=== PATIENT | male | born 1960 | race Caucasian/White ===

== ENCOUNTER → 2018-05-01 10:04 | Outpatient (CLI) | payer OTHER, SELFPAY ==
[2018-05-01 10:33] LABS: Add Manual Diff / Slide Review NO; Basophils Percent Auto 0.8 % (0-2); Eosinophils Percent Auto 3.9 % (2-4); Hematocrit 35.3 % (41-53); Hemoglobin 12.3 g/dL (13.5-17.5); Mean Corpuscular HGB Conc 34.8 % (30-36); Mean Corpuscular Hemoglobin 33.7 PG (26-34); Mean Corpuscular Volume 96.9 fL (80-100); Monocytes Percent Auto 8.6 % (3-14); Neutrophils Absolute Auto 4100 /uL (3000-5900); Neutrophils Percent Auto 61.7 % (50-75); Platelet Count 236 X10^3/uL (150-400); Red Blood Cell Count 3.64 X10^6/uL (4.5-5.9); Red Cell Distribution Width 15.1 % (11.6-14.8); White Blood Cell Count 6.6 X10^3/uL (4.5-11.0)
[2018-05-01 11:15] LABS: Alanine Aminotransferase 35 IU/L (21-72); Albumin 4.4 g/dL (3.5-5.0); Albumin Globulin Ratio 1.5 (1.0-2.8); Alkaline Phosphatase 65 U/L (38-126); Aspartate Aminotransferase 25 IU/L (17-59); BUN Creatinine Ratio 36.2 (6-22); Bilirubin Total 0.5 mg/dL (0.2-1.3); Blood Urea Nitrogen 47 mg/dL (9-20); Carbon Dioxide 22 mmol/L (22-32); Chloride 109 mmol/L (98-107); Cholesterol 162 mg/dL (140-199); Estimated Glomerular Filt Rate 56.9 mL/min (>60); Globulin 2.9 g/dL (1.7-4.1); Glucose 122 mg/dL (70-100); HDL Cholesterol 26 mg/dL (40-60); HEMOLYSIS < 15 (0-50); Hemoglobin A1C% w Est Avg Glu 5.8 % (4.0-6.0); LDL Cholesterol Calculated 110 mg/dL (<100); Potassium 5.1 mmol/L (3.4-5.1); Sodium 146 mmol/L (137-145); Total Protein 7.3 g/dL (6.3-8.2); Triglycerides 128 mg/dL (35-150)
[2018-05-04 14:05] LABS: Fecal Immunochemical Test DETECTED
== END ==
PROVIDERS: PCP Nurse Practitioner Family; Visit Provider Nurse Practitioner Family
DX: E11.40 Type 2 diabetes mellitus with diabetic neuropathy, unspecified (principal); E78.5 Hyperlipidemia, unspecified; I10 Essential (primary) hypertension
CPT/HCPCS: 36415; 80053; 80061; 82274; 83036; 85025

== ENCOUNTER → 2018-05-07 14:27 | Outpatient (CLI) | payer OTHER, SELFPAY ==
[2018-05-07 14:38] LABS: Bacteria Urine None Seen; RBC Urine None Seen (0-5/HPF); WBC Urine None Seen (0-5/HPF)
[2018-05-07 15:00] LABS: Appearance Urine UA CLEAR; Bilirubin Urine UA NEGATIVE (NEGATIVE); Color Urine UA YELLOW; Glucose Urine UA NEGATIVE (Normal); Ketones Urine UA TRACE (NEGATIVE); Leukocyte Esterase Urine UA NEGATIVE (NEGATIVE); Nitrite Urine UA Negative (Negative); Occult Blood Urine UA NEGATIVE (Negative); Protein Urine UA NEGATIVE (Negative); Specific Gravity Urine UA 1.015 (1.000-1.035); Urobilinogen Urine UA 0.2 E.U./dL (0.2)
[2018-05-07 15:38] LABS: Culture Indicated Urine Cult Not Indicated; Squamous Epithelial Cell Urine 0-1 /HPF; Urine Comments Microscopic Normal
[2018-05-07 17:00] LABS: BUN Creatinine Ratio 29.2 (6-22); Blood Urea Nitrogen 35 mg/dL (9-20); Calcium 10.1 mg/dL (8.4-10.2); Carbon Dioxide 26 mmol/L (22-32); Chloride 105 mmol/L (98-107); Estimated Glomerular Filt Rate > 60.0 mL/min (>60); Glucose 113 mg/dL (70-100); HEMOLYSIS < 15 (0-50); Sodium 141 mmol/L (137-145)
[2018-05-07 17:01] LABS: Creatinine Urine Random 92.6 mg/dL
[2018-05-07 17:18] LABS: Microalbumi Creatinin Ratio Ur 6.4 ug/mg CR (<30); Microalbumin Urine Random < 0.6 mg/dL (0-1.6); Potassium 5.5 mmol/L (3.4-5.1)
== END ==
PROVIDERS: Visit Provider Internal Medicine
DX: E11.40 Type 2 diabetes mellitus with diabetic neuropathy, unspecified (principal); E78.5 Hyperlipidemia, unspecified; I10 Essential (primary) hypertension; R79.89 Other specified abnormal findings of blood chemistry
CPT/HCPCS: 36415; 80048; 81001; 82043; 82570

== ENCOUNTER → 2018-11-19 15:47 | Outpatient (CLI) | payer OTHER, SELFPAY ==
[2018-11-19 16:25] LABS: Hematocrit 32.1 % (41-53); Hemoglobin 11.1 g/dL (13.5-17.5); Mean Corpuscular HGB Conc 34.6 % (30-36); Mean Corpuscular Volume 95.6 fL (80-100); Platelet Count 274 X10^3/uL (150-400); Red Blood Cell Count 3.36 X10^6/uL (4.5-5.9); Red Cell Distribution Width 14.1 % (11.6-14.8); White Blood Cell Count 5.6 X10^3/uL (4.5-11.0)
[2018-11-19 16:32] LABS: Hemoglobin A1C% w Est Avg Glu 5.5 % (4.0-6.0)
[2018-11-19 16:42] LABS: Alanine Aminotransferase 29 IU/L (21-72); Albumin 4.6 g/dL (3.5-5.0); Albumin Globulin Ratio 1.8 (1.0-2.8); Alkaline Phosphatase 82 U/L (38-126); Aspartate Aminotransferase 22 IU/L (17-59); BUN Creatinine Ratio 28.8 (6-22); Bilirubin Total 0.5 mg/dL (0.2-1.3); Blood Urea Nitrogen 49 mg/dL (9-20); Calcium 10.3 mg/dL (8.4-10.2); Carbon Dioxide 25 mmol/L (22-32); Chloride 100 mmol/L (98-107); Estimated Glomerular Filt Rate 41.8 mL/min (>60); Globulin 2.6 g/dL (1.7-4.1); Glucose 113 mg/dL (70-100); HEMOLYSIS < 15 (0-50); Potassium 5.3 mmol/L (3.4-5.1); Sodium 138 mmol/L (137-145); Total Protein 7.2 g/dL (6.3-8.2)
[2018-11-19 16:58] LABS: Vitamin D 25 Hydroxy (D3) 38.7 ng/mL (30.0-100.0)
[2018-11-19 17:14] LABS: Prostate Specific Antigen Scrn 0.769 ng/mL (0.1-4.0)
[2018-11-19 17:18] LABS: Ferritin 83.4 ng/mL (17.9-464)
[2018-11-19 17:48] LABS: Folate 10.8 ng/mL (2.76-20.0); Vitamin B12 641 pg/mL (239-931)
== END ==
PROVIDERS: PCP Student in an Organized Health Care Education/Training Program; Visit Provider Student in an Organized Health Care Education/Training Program
DX: E55.9 Vitamin D deficiency, unspecified (principal); D64.9 Anemia, unspecified; E11.40 Type 2 diabetes mellitus with diabetic neuropathy, unspecified; F10.20 Alcohol dependence, uncomplicated; I10 Essential (primary) hypertension; Z12.5 Encounter for screening for malignant neoplasm of prostate
CPT/HCPCS: 36415; 80053; 82306; 82607; 82728; 82746; 83036; 85027; G0103

== ENCOUNTER → 2020-03-27 15:16 | Outpatient (CLI) | payer OTHER, SELFPAY ==
[2020-03-27 15:40] LABS: Hematocrit 39.1 % (41-53); Hemoglobin 13.3 g/dL (13.5-17.5); Mean Corpuscular HGB Conc 33.9 % (30-36); Mean Corpuscular Hemoglobin 30.4 PG (26-34); Mean Corpuscular Volume 89.8 fL (80-100); Platelet Count 227 X10^3/uL (150-400); Red Blood Cell Count 4.36 X10^6/uL (4.5-5.9); Red Cell Distribution Width 15.1 % (11.6-14.8); White Blood Cell Count 7.4 X10^3/uL (4.5-11.0)
[2020-03-27 15:49] LABS: Creatinine Urine Random 73.7 mg/dL
[2020-03-27 16:11] LABS: Hemoglobin A1C% w Est Avg Glu 5.8 % (4.0-6.0)
[2020-03-27 16:26] LABS: Microalbumi Creatinin Ratio Ur 8.1 ug/mg CR (<30); Microalbumin Urine Random < 0.6 mg/dL (0-1.6)
[2020-03-27 17:18] LABS: Alanine Aminotransferase 15 IU/L (<50); Albumin 4.5 g/dL (3.5-5.0); Albumin Globulin Ratio 1.8 (1.0-2.8); Alkaline Phosphatase 72 U/L (38-126); Aspartate Aminotransferase 19 IU/L (17-59); BUN Creatinine Ratio 27.7 (6-22); Bilirubin Total 0.7 mg/dL (0.2-1.3); Bilirubin Unconjugated 0.5 mg/dL (0.0-1.1); Blood Urea Nitrogen 31 mg/dL (9-20); Calcium 9.7 mg/dL (8.4-10.2); Carbon Dioxide 24 mmol/L (22-32); Chloride 106 mmol/L (98-107); Estimated Glomerular Filt Rate > 60.0 mL/min (>60); Globulin 2.5 g/dL (1.7-4.1); Glucose 86 mg/dL (70-100); HEMOLYSIS < 15 (0-50); Potassium 5.1 mmol/L (3.4-5.1); Sodium 138 mmol/L (137-145)
== END ==
PROVIDERS: PCP Student in an Organized Health Care Education/Training Program; Referring Provider Student in an Organized Health Care Education/Training Program; Visit Provider Student in an Organized Health Care Education/Training Program
DX: E11.9 Type 2 diabetes mellitus without complications (principal); F10.21 Alcohol dependence, in remission; I10 Essential (primary) hypertension; N18.3 Chronic kidney disease, stage 3 (moderate)
CPT/HCPCS: 36415; 80048; 80076; 82043; 82570; 83036; 85027; G0103

== ENCOUNTER → 2021-03-16 12:05 | Outpatient (CLI) | payer OTHER, SELFPAY ==
[2021-03-16 13:13] LABS: Hemoglobin A1C% w Est Avg Glu 5.7 % (4.0-6.0)
[2021-03-16 13:17] LABS: BUN Creatinine Ratio 25.8 (6-22); Blood Urea Nitrogen 24 mg/dL (9-20); Calcium 9.9 mg/dL (8.4-10.2); Carbon Dioxide 20 mmol/L (22-32); Chloride 109 mmol/L (98-107); Estimated Glomerular Filt Rate > 60.0 mL/min (>60); Glucose 106 mg/dL (70-100); HEMOLYSIS 22 (0-50); Potassium 5.1 mmol/L (3.4-5.1); Sodium 139 mmol/L (137-145)
[2021-03-16 13:25] LABS: Creatinine Urine Random 65.4 mg/dL
[2021-03-16 13:32] LABS: Microalbumin Urine Random < 0.6 mg/dL (0-1.6)
== END ==
PROVIDERS: PCP Student in an Organized Health Care Education/Training Program; Referring Provider Student in an Organized Health Care Education/Training Program; Visit Provider Student in an Organized Health Care Education/Training Program
DX: E11.9 Type 2 diabetes mellitus without complications (principal); E66.9 Obesity, unspecified; I10 Essential (primary) hypertension
CPT/HCPCS: 36415; 80048; 82043; 82570; 83036

== ENCOUNTER → 2022-03-22 08:20 | Outpatient (CLI) | payer OTHER, SELFPAY ==
[2022-03-22 09:47] LABS: BUN Creatinine Ratio 31.6 (6-22); Blood Urea Nitrogen 31 mg/dL (9-20); Calcium 9.3 mg/dL (8.4-10.2); Carbon Dioxide 23 mmol/L (22-32); Chloride 109 mmol/L (98-107); Cholesterol 157 mg/dL (140-199); Estimated Glomerular Filt Rate > 60 mL/min (>60); Glucose 138 mg/dL (80-110); HDL Cholesterol 33 mg/dL (40-60); HEMOLYSIS 15 (0-50); LDL Cholesterol Calculated 98 mg/dL (<100); Sodium 138 mmol/L (137-145); Triglycerides 128 mg/dL (35-150)
[2022-03-22 09:50] LABS: Creatinine Urine Random 78.1 mg/dL
[2022-03-22 09:54] LABS: Microalbumi Creatinin Ratio Ur 8.9 ug/mg CR (<30); Microalbumin Urine Random 0.7 mg/dL (0-1.6)
[2022-03-22 10:16] LABS: Prostate Specific Antigen Scrn 0.507 ng/mL (0.1-4.0)
== END ==
PROVIDERS: PCP Student in an Organized Health Care Education/Training Program; Referring Provider Student in an Organized Health Care Education/Training Program; Visit Provider Student in an Organized Health Care Education/Training Program
DX: E11.9 Type 2 diabetes mellitus without complications (principal); E78.5 Hyperlipidemia, unspecified; I10 Essential (primary) hypertension; Z12.5 Encounter for screening for malignant neoplasm of prostate
CPT/HCPCS: 36415; 80048; 80061; 82043; 82570; 83036; G0103

== ENCOUNTER → 2022-10-22 10:49 | Outpatient (CLI) | payer OTHER, SELFPAY ==
[2022-10-23 04:08] LABS: Fructosamine 207 umol/L (0-285)
== END ==
PROVIDERS: PCP Student in an Organized Health Care Education/Training Program; Referring Provider Student in an Organized Health Care Education/Training Program; Visit Provider Student in an Organized Health Care Education/Training Program
DX: E11.9 Type 2 diabetes mellitus without complications (principal)
CPT/HCPCS: 36415; 82985

== ENCOUNTER 2023-04-23 12:29 | Day surgery (SDC) | payer OTHER, SELFPAY ==
[2023-04-14 14:32] VITALS: BMI 32.1
[2023-04-23 14:08] VITALS: BP 137/70; PULSE 72; RESP 16; TEMP 36.6; O2SAT 98; BMI 32.1
--- NOTE | 2023-04-23 14:27 | PM.PREOP ---
Pre-operative Note Interval Note History & Physical reviewed/Exam performed by Physician: Yes Changes to H&P: No
[2023-04-23] MEDS: LACTATED RINGERS 1,000 ML 42 ML IV ×2 (14:33→15:46)
[2023-04-23] MEDS: ACETAMINOPHEN 325 MG TABLET 650 MG PO (14:38)
[2023-04-23] MEDS: CEFAZOLIN 2 GM/100 ML PREMIX 100 ML IV (15:00)
--- NOTE | 2023-04-23 15:26 | SUR.OPER ---
Beach chair with Farhad shoulder positioner. Lower body on padded OR bed. Head in foam padded head cradle, secured with straps. Non-operative arm secured <90 degrees abduction. Pillow under knees. Safety belt at thigh. Cloth tape over blanket over lower legs.
[2023-04-23] MEDS: LIDOCAINE 2% W/EPI INJ 20 ML INJ (15:29)
[2023-04-23] MEDS: EPINEPHrine 1 MG/ML IRR (15:31)
--- NOTE | 2023-04-23 16:40 | P.OP_ITS ---
Operative Date/Time/Diagnoses Date of procedure: 04/23/23 Time of procedure: 15:00 Pre-op diagnosis: Right shoulder Bankart tear as well as rotator cuff tear status post dislocation Post-op diagnosis: same Procedure & Clinicians Procedure: Right shoulder arthroscopic extensive debridement with Bankart repair as well as rotator cuff repair with loose body removal. Same procedure as scheduled: Yes Indications: Right shoulder dislocation Surgeon: Kevin Sampson Construction Consultant: Marcel Khalil Anesthesia Type: General and Peripheral nerve block Operative Notes Findings: Significant arthritic changes to the glenohumeral joint with quite a bit of fraying to the articular cartilage on the humeral head as well as thinning of the cartilage of both the humeral head and glenoid. No sign of any full-thi ckness cartilage loss. Signs of a recurrent Bankart tear. No sign of any SLAP tear. Degenerative changes throughout labrum. Some partial tearing to the articular surface of the subscapularis but no high-grade partial tears. Full- thickness tear to the anterior portion of the supraspinatus but no sign of any recurrent tear to his previous rotator cuff repair. Patient had loose bodies in the glenohumeral joint as well as a large floating loose body in the subacromial space. Closure Type: primary Applied: other (Two PushLock anchors 1 SwiveLock anchor, Arthrex) Estimated Blood Loss (mL): 10 Procedure in detail: On date of service, Patient was met in the holding area. The operative site was signed and witnessed by the OR staff. The surgeries once again discussed with the patient and any remaining questions they had were answered fully. Patient was taken back to the operating theater and placed on the operating table in a supine position. Great care was taken to ensure that all bony prominences were properly padded. Patient was then placed into the beach chair position. The head and neck were properly positioned and secured. A timeout was performed verifying patient's name, procedure, and the operative site. The upper extremity was then prepped and draped in the normal sterile fashion. Previously, the bony anatomy and portal sites were marked out as well as injected with Marcaine with epinephrine. An 11 blade was used to make an incision in the posterior aspect of the shoulder. The camera was placed, and a diagnostic shoulder scope was performed. Findings listed above. Next under direct visualization, 2 portals were made. Anterior superior and anterior inferior portals. A shaver was brought in anteriorly and a debridement of the glenohumeral joint was performed. Mainly focusing on some articular sided tearing of the subscapularis. No sign of any high-grade partial tears. Shaver was then used to debride the labral tear as well as the bony surface to get a better healing surface. Next, FiberStick suture was then passed through the capsule tissue as well as the labral tissue at around 5:00 these 2 suture limbs were then placed into an anchor. A drill hole was made in the anchor was used to tenodesis the torn labrum and do a capsular shift to the anterior inferior aspect of the glenoid. This process was repeated 1 more times at 4:00 which provided a secure repair of the torn labrum as well as help stabilize the shoulder. Patient had a positive drive-through sign before the repair and that was resolved after the repair. Patient's shoulder was taken through range of motion and there was no sign of any residual instability. We then turned our attention to the rotator cuff tear. Camera was placed in the subacromial space and 2 lateral portals were established. Combination of shaver and ArthroCare Wand was used to debride out the subacromial and subdeltoid space giving us good visualization of the bursal aspect of the rotator cuff. There was partial tearing to the bursal aspect of the supraspinatus and infraspinatus and this was debrided. No sign of any recurrent tear to the previous rotator repair. Patient had tearing to the anterior aspect of the supraspinatus. The tear was quite mobile and would easily reduce across the rotator cuff footprint. A bur was used to decorticate the footprint to get a better healing surface. FiberTape was passed in a horizontal mattress fashion then was placed into a lateral anchor which was then placed into the greater tuberosity providing a repair of the rotator cuff. Patient's shoulder was then cleaned dried and dressed and patient was taken to the PACU in stable condition Complications: none Post-operative Condition: stable Disposition: PACU Plan for aftercare: Patient will follow a postoperative protocol for rotator cuff repair
[2023-04-23 16:50] VITALS: BP 124/79; PULSE 74; RESP 18; TEMP 36.1; O2SAT 95
[2023-04-23 16:55] VITALS: BP 116/76; PULSE 69; RESP 19; O2SAT 94
[2023-04-23 17:00] VITALS: BP 118/73; PULSE 72; RESP 16; O2SAT 95
[2023-04-23 17:05] VITALS: BP 108/72; PULSE 81; RESP 11; TEMP 35.5; O2SAT 96
[2023-04-23 17:17] VITALS: BP 122/77; PULSE 74; RESP 12; TEMP 36.3; O2SAT 96
--- NOTE | 2023-04-23 18:46 | P.PCN_ITS ---
Peripheral Nerve Block Note Pre-Procedure Reason for block: Attending surgeon request/order for post-op pain management Pre-procedure checklist: Patient examined and chart reviewed, Risks, benefits, alternatives of block discussed, questions answered, Verification of anti- coagulation status, Site confirmed, Timeout performed and Standard ASA monitors applied Consent obtained from: Patient Procedure Date of procedure: 04/23/23 Start Time: 14:40 End Time: 14:45 Performed by: Betzaida Alves Sedation - enter dose in comment field: IV Midazolam (mg) (2mg) and IV Fentanyl (mcg) (100mcg) Location: Pre-Op Position: Supine Laterality: Right (Interscalene ) Sterile Technique: Sterile barrier maintained, Sterile gloves, Mask, Sterile drapes, U/S probe cover, Chloraprep and Betadine Skin Wheal: Lidocaine 2% mL: 1 Gauge: 27 Equipment Single injection - Needle brand, gauge, length: single injection- Pajunk, 22G x 50mm Medications Medications - enter concentration (%) & mL in comment field: Ropivacaine (0.5%, 20mls) Incremental aspiration prior to injection: Yes Ultrasound Reason for Ultrasound: U/S guidance used for needle placement and U/S used to visualize spread of anesthetic Image printed/saved/archived: Yes Limited exam reveals no abnormal findings: Yes Vital signs VS: - 04/23/23 14:08 04/23/23 16:50 04/23/23 16:55 Temperature 97.8 F 96.9 F L Pulse Rate 72 74 69 Respiratory Rate 16 18 19 Blood Pressure 137/70 124/79 116/76 Pulse Oximetry 98 95 94 Oxygen Delivery Method Room Air Room Air Room Air 04/23/23 17:05 04/23/23 17:17 04/23/23 17:00 Temperature 96 F L 97.3 F L Pulse Rate 81 74 72 Respiratory Rate 11 L 12 16 Blood Pressure 108/72 122/77 118/73 Pulse Oximetry 96 96 95 Oxygen Delivery Method Room Air Room Air Room Air Oxygen Delivery Method Room Air Events Nerve Block Events: Procedure uneventful
== END 2023-04-23 17:30 | disposition home or self-care (01) ==
PROVIDERS: PCP Family Medicine; Referring Provider Orthopaedic Surgery; Visit Provider Orthopaedic Surgery
PROC: (CPT 29827; principal; 2023-04-23 14:45)
DX: M75.111 Incomplete rotator cuff tear or rupture of right shoulder, not specified as traumatic (principal); S43.431A Superior glenoid labrum lesion of right shoulder, initial encounter; S43.004A Unspecified dislocation of right shoulder joint, initial encounter; M21.821 Other specified acquired deformities of right upper arm; G89.18 Other acute postprocedural pain
CPT/HCPCS: 29806; 29827; 36415; 64415; J0171; J0690; J1100; J2250; J2405; J2704; J3010

== ENCOUNTER → 2023-05-01 11:17 | Outpatient (CLI) | payer OTHER, MEDICAID, SELFPAY ==
[2023-05-01 11:57] LABS: Add Manual Diff / Slide Review NO; Basophils Absolute Auto 0 /uL (0-100); Basophils Percent Auto 0.7 % (0-2); Eosinophils Absolute Auto 200 /uL (0-450); Eosinophils Percent Auto 2.7 % (2-4); Hemoglobin 14.2 g/dL (13.5-17.5); Lymphocytes Absolute Auto 1600 /uL (1100-4500); Lymphocytes Percent Auto 26.9 % (25-40); Mean Corpuscular HGB Conc 33.9 % (30-36); Mean Corpuscular Hemoglobin 28.7 PG (26-34); Mean Corpuscular Volume 84.8 fL (80-100); Monocytes Absolute Auto 500 /uL (0-900); Monocytes Percent Auto 8.3 % (3-14); Neutrophils Absolute Auto 3600 /uL (1500-7000); Neutrophils Percent Auto 61.4 % (50-75); Platelet Count 271 X10^3/uL (150-400); Red Blood Cell Count 4.96 X10^6/uL (4.5-5.9); Red Cell Distribution Width 15.6 % (11.6-14.8); White Blood Cell Count 5.8 X10^3/uL (4.5-11.0)
[2023-05-01 12:09] LABS: Hemoglobin A1C% w Est Avg Glu 6.5 % (4.0-6.0)
[2023-05-01 12:19] LABS: Alanine Aminotransferase 18 IU/L (<50); Albumin 4.3 g/dL (3.5-5.0); Albumin Globulin Ratio 1.4 (1.0-2.8); Alkaline Phosphatase 84 U/L (38-126); Aspartate Aminotransferase 19 IU/L (17-59); BUN Creatinine Ratio 24.5 (6-22); Bilirubin Total 0.5 mg/dL (0.2-1.3); Blood Urea Nitrogen 24 mg/dL (9-20); Carbon Dioxide 25 mmol/L (22-32); Chloride 104 mmol/L (98-107); Cholesterol 209 mg/dL (140-199); Estimated Glomerular Filt Rate > 60 mL/min (>60); Glucose 150 mg/dL (80-110); HDL Cholesterol 31 mg/dL (40-60); HEMOLYSIS < 15 (0-50); LDL Cholesterol Calculated 146 mg/dL (<100); Potassium 4.5 mmol/L (3.4-5.1); Sodium 138 mmol/L (137-145); Total Protein 7.3 g/dL (6.3-8.2); Triglycerides 159 mg/dL (35-150)
[2023-05-01 12:48] LABS: Prostate Specific Antigen 0.483 ng/mL (0.10-4.00)
[2023-05-01 13:23] LABS: Folate 8.4 ng/mL (2.76-20.0); Vitamin B12 776 pg/mL (239-931)
[2023-05-01 14:58] LABS: Creatinine Urine Random 96.2 mg/dL
[2023-05-01 15:15] LABS: Microalbumin Urine Random < 0.6 mg/dL (0-1.6)
[2023-05-02 09:09] LABS: HIV 1 & 2 Ab/Ag 4th Gen Combo NEGATIVE (NEGATIVE)
== END ==
PROVIDERS: PCP Family Medicine; Referring Provider Family Medicine; Visit Provider Family Medicine
DX: F32.A Depression, unspecified (principal); F10.21 Alcohol dependence, in remission; R41.3 Other amnesia; G57.93 Unspecified mononeuropathy of bilateral lower limbs; E11.9 Type 2 diabetes mellitus without complications; I10 Essential (primary) hypertension
CPT/HCPCS: 36415; 80053; 80061; 82043; 82570; 82607; 82746; 83036; 84153; 85025; 87389

== ENCOUNTER → 2023-07-16 10:07 | Outpatient (CLI) | payer OTHER, MEDICAID, SELFPAY ==
[2023-07-16 11:50] LABS: HEMOLYSIS < 15 (0-50); Iron 107 ug/dL (49-181)
[2023-07-16 12:02] LABS: Percent Iron Saturation 30 % (20-50); Total Iron Binding Capacity 361 ug/dL (261-462); Transferrin 302 mg/dL (206-381)
[2023-07-16 12:11] LABS: Vitamin D 25 Hydroxy (D3) 56.4 ng/mL (30.0-100.0)
[2023-07-16 12:27] LABS: Ferritin 13 ng/mL (18-464)
[2023-07-16 12:42] LABS: Vitamin B12 484 pg/mL (239-931)
== END ==
PROVIDERS: PCP Family Medicine; Referring Provider Family Medicine; Visit Provider Family Medicine
DX: E11.9 Type 2 diabetes mellitus without complications (principal); E66.9 Obesity, unspecified
CPT/HCPCS: 36415; 82306; 82607; 82728; 83540; 83550

== ENCOUNTER → 2023-09-11 12:48 | Outpatient (CLI) | payer OTHER, MEDICAID, SELFPAY ==
--- NOTE | 2023-09-11 12:49 | DI.RAD.S_ITS ---
PROCEDURE: XR KNEE LT 3V INDICATIONS: Acute left knee pain with effusion TECHNIQUE: 3 views of the knee were acquired. COMPARISON: None. FINDINGS: Bones: No fractures or dislocations. No suspicious bony lesions. Mild lateral subluxation of patella. Moderate patellofemoral joint degeneration a mild femorotibial joint degeneration. Soft tissues: Small joint effusion. No suspicious soft tissue calcifications. IMPRESSION: 1. Degenerative joint disease, most pronounced at the patellofemoral joint. 2. Mild lateral subluxation of patella. 3. Small knee joint effusion. Dictated by: Charbel Tomlinson M.D. on 09/11/2023 at 15:05 Approved by: Charbel Tomlinson M.D. on 09/11/2023 at 15:07
[2023-09-11 13:20] LABS: Hemoglobin A1C% w Est Avg Glu 5.9 % (4.0-6.0)
[2023-09-11 13:33] LABS: Uric Acid 6.6 mg/dL (3.5-8.5)
[2023-09-11 13:35] LABS: Add Manual Diff / Slide Review NO; Basophils Absolute Auto 0 /uL (0-100); Basophils Percent Auto 0.5 % (0-2); Eosinophils Absolute Auto 100 /uL (0-450); Eosinophils Percent Auto 1.2 % (2-4); Hematocrit 42.6 % (41-53); Hemoglobin 14.5 g/dL (13.5-17.5); Lymphocytes Absolute Auto 1800 /uL (1100-4500); Lymphocytes Percent Auto 21.2 % (25-40); Mean Corpuscular HGB Conc 34.1 % (30-36); Mean Corpuscular Hemoglobin 28.7 PG (26-34); Mean Corpuscular Volume 84.3 fL (80-100); Monocytes Absolute Auto 800 /uL (0-900); Monocytes Percent Auto 8.7 % (3-14); Neutrophils Absolute Auto 5900 /uL (1500-7000); Neutrophils Percent Auto 68.4 % (50-75); Platelet Count 240 X10^3/uL (150-400); Red Blood Cell Count 5.05 X10^6/uL (4.5-5.9); White Blood Cell Count 8.6 X10^3/uL (4.5-11.0)
[2023-09-11 15:31] LABS: Urine N gonorrhoeae NOT DETECTED
[2023-09-11 15:44] LABS: Urine Chlamydia NOT DETECTED
[2023-09-14 18:47] LABS: HIV 1 & 2 Ab/Ag 4th Gen Combo NEGATIVE (NEGATIVE)
[2023-10-09 13:26] LABS: RPR Screen Reactive
== END ==
LOC: LAB 12:49
PROVIDERS: PCP Family Medicine; Referring Provider Family Medicine; Visit Provider Family Medicine
DX: Z11.3 Encounter for screening for infections with a predominantly sexual mode of transmission (principal); M25.562 Pain in left knee; I10 Essential (primary) hypertension; E78.5 Hyperlipidemia, unspecified; E66.9 Obesity, unspecified
CPT/HCPCS: 36415; 73562; 83036; 84550; 85025; 86592; 87389; 87491; 87591

== ENCOUNTER → 2023-11-17 12:59 | Outpatient (CLI) | payer OTHER, MEDICAID, SELFPAY ==
[2023-11-17 18:37] LABS: Hep C Virus Ab w/Reflex Quant NEGATIVE s/c (NEGATIVE)
[2023-11-20 13:34] LABS: Treponema pallidum Antibodies Non Reactive
== END ==
PROVIDERS: PCP Family Medicine; Referring Provider Family Medicine; Visit Provider Family Medicine
DX: A53.0 Latent syphilis, unspecified as early or late (principal); Z11.59 Encounter for screening for other viral diseases
CPT/HCPCS: 86780; 86803

== ENCOUNTER → 2024-03-19 08:50 | Outpatient (CLI) | payer OTHER, MEDICAID, SELFPAY ==
[2024-03-19 09:39] LABS: Add Manual Diff / Slide Review NO; Basophils Absolute Auto 100 /uL (0-100); Basophils Percent Auto 0.8 % (0-2); Eosinophils Absolute Auto 300 /uL (0-450); Eosinophils Percent Auto 3.6 % (2-4); Hematocrit 42.9 % (41-53); Hemoglobin 14.7 g/dL (13.5-17.5); Lymphocytes Absolute Auto 1500 /uL (1100-4500); Lymphocytes Percent Auto 21.7 % (25-40); Mean Corpuscular HGB Conc 34.2 % (30-36); Mean Corpuscular Hemoglobin 31.3 PG (26-34); Mean Corpuscular Volume 91.6 fL (80-100); Monocytes Absolute Auto 600 /uL (0-900); Monocytes Percent Auto 7.9 % (3-14); Neutrophils Absolute Auto 4600 /uL (1500-7000); Platelet Count 242 X10^3/uL (150-400); Red Blood Cell Count 4.68 X10^6/uL (4.5-5.9)
[2024-03-19 10:08] LABS: Hemoglobin A1C% w Est Avg Glu 4.9 % (4.0-6.0)
[2024-03-19 10:17] LABS: Creatinine Urine Random 99.77 mg/dL
[2024-03-19 10:18] LABS: Alanine Aminotransferase 14 IU/L (<50); Albumin 4.3 g/dL (3.5-5.0); Alkaline Phosphatase 61 U/L (38-126); Aspartate Aminotransferase 16 IU/L (17-59); BUN Creatinine Ratio 22.2 (6-22); Bilirubin Total 0.5 mg/dL (0.2-1.3); Blood Urea Nitrogen 26 mg/dL (9-20); Calcium 10.6 mg/dL (8.4-10.2); Carbon Dioxide 25 mmol/L (22-32); Chloride 106 mmol/L (98-107); Cholesterol 155 mg/dL (140-199); Estimated Glomerular Filt Rate > 60 mL/min (>60); Globulin 2.2 g/dL (1.7-4.1); Glucose 134 mg/dL (80-110); HDL Cholesterol 46 mg/dL (40-60); HEMOLYSIS < 15 (0-50); LDL Cholesterol Calculated 86 mg/dL (<100); Potassium 4.3 mmol/L (3.4-5.1); Sodium 141 mmol/L (137-145); Total Protein 6.5 g/dL (6.3-8.2); Triglycerides 115 mg/dL (35-150)
[2024-03-19 10:29] LABS: Microalbumin Urine Random < 0.6 mg/dL (0-1.6)
[2024-03-19 10:48] LABS: Prostate Specific Antigen 0.653 ng/mL (0.10-4.00); TSH w/ Reflex to FT4 0.52 uIU/mL (0.47-4.68)
[2024-03-19 10:52] LABS: Ferritin 20 ng/mL (18-464)
== END ==
PROVIDERS: PCP Family Medicine; Referring Provider Family Medicine; Visit Provider Family Medicine
DX: I10 Essential (primary) hypertension (principal); Z86.74 Personal history of sudden cardiac arrest; E78.5 Hyperlipidemia, unspecified; R79.0 Abnormal level of blood mineral; E11.9 Type 2 diabetes mellitus without complications; E66.9 Obesity, unspecified
CPT/HCPCS: 36415; 80053; 80061; 82043; 82570; 82728; 83036; 84153; 84443; 85025

== ENCOUNTER → 2024-08-08 16:12 | Outpatient (CLI) | payer OTHER, SELFPAY ==
--- NOTE | 2024-08-08 16:13 | DI.US.S_ITS ---
PROCEDURE: US SOFT TISSUE HEAD AND NECK INDICATIONS: subcutaneous mass of neck TECHNIQUE: Real-time scanning was performed of the neck region of interest, with image documentation. COMPARISON: None. FINDINGS: Within the area of interest in the right posterior neck, there is a 2.4 x 3.0 x 1.0 cm a vascular mass within the subcutaneous tissues. IMPRESSION: Avascular mass within the subcutaneous tissues measure up to 3.0 cm. This may represent a lipoma. Differential includes other benign and malignant etiologies. Recommend clinical correlation and follow-up. If there is concern for growth, MRI can be obtained for further evaluation. Dictated by: Philip Weiner M.D. on 08/09/2024 at 13:22 Approved by: Philip Weiner M.D. on 08/09/2024 at 13:24
== END ==
PROVIDERS: PCP Family Medicine; Referring Provider Family Medicine; Visit Provider Family Medicine
DX: R22.1 Localized swelling, mass and lump, neck (principal)
CPT/HCPCS: 76536

== ENCOUNTER → 2024-10-10 11:35 | Outpatient (CLI) | payer OTHER, SELFPAY ==
[2024-10-10 13:08] LABS: Hemoglobin A1C% w Est Avg Glu 5.3 % (4.0-6.0)
[2024-10-10 13:29] LABS: Alanine Aminotransferase 24 IU/L (<50); Albumin 4.6 g/dL (3.5-5.0); Albumin Globulin Ratio 1.9 (1.0-2.8); Alkaline Phosphatase 83 U/L (38-126); Aspartate Aminotransferase 29 IU/L (17-59); BUN Creatinine Ratio 12.3 (6-22); Bilirubin Total 0.9 mg/dL (0.2-1.3); Blood Urea Nitrogen 16 mg/dL (9-20); Calcium 9.5 mg/dL (8.4-10.2); Carbon Dioxide 24 mmol/L (22-32); Chloride 103 mmol/L (98-107); Estimated Glomerular Filt Rate > 60 mL/min (>60); Globulin 2.4 g/dL (1.7-4.1); Glucose 98 mg/dL (80-110); HEMOLYSIS < 15 (0-50); Potassium 4.4 mmol/L (3.4-5.1); Sodium 139 mmol/L (137-145)
== END ==
PROVIDERS: PCP Family Medicine; Referring Provider Family Medicine; Visit Provider Family Medicine
DX: E83.52 Hypercalcemia (principal); E11.40 Type 2 diabetes mellitus with diabetic neuropathy, unspecified
CPT/HCPCS: 36415; 80053; 82330; 83036

== ENCOUNTER → 2024-10-12 11:39 | Outpatient (CLI) | payer OTHER, SELFPAY ==
--- NOTE | 2024-10-12 11:40 | DI.RAD.S_ITS ---
PROCEDURE: XR FOOT LT MIN 3V INDICATIONS: Dorsal foot pain, erythema, gout vs infxn vs other TECHNIQUE: 3 views of the foot were acquired. COMPARISON: None. FINDINGS: Bones: Moderate pes cavus. No fractures or dislocations. Mild degenerative changes are noted within the dorsal aspect of the midfoot and tarsometatarsal region. No suspicious bony lesions. Soft tissues: No tibiotalar joint effusion. Achilles tendon appears normal. IMPRESSION: Degenerative change without evidence of acute osseous abnormality. Dictated by: Nabil Dolan M.D. on 10/13/2024 at 3:14 Approved by: Nabil Dolan M.D. on 10/13/2024 at 3:16
[2024-10-12 12:50] LABS: Uric Acid 6.4 mg/dL (3.5-8.5)
== END ==
PROVIDERS: PCP Family Medicine; Referring Provider Family Medicine; Visit Provider Family Medicine
DX: M79.672 Pain in left foot (principal)
CPT/HCPCS: 36415; 73630; 84550